=== PATIENT | female | born 1940 | race Caucasian/White ===

== ENCOUNTER 2018-09-17 11:09 | Day surgery (SDC) | payer MEDICARE, BC ==
[~2018-09-17] VITALS: Ht 165.1 cm; Wt 50.6 kg
[2018-09-17] MEDS ORDERED: normal saline 1000ml 1,000 ML IV PRN (11:50)
[2018-09-17 11:55] LABS: BASOPHILS % (AUTO) 0.4 % (0-1); EOSINOPHILS # (AUTO) 0.2 X10'3 (0-0.9); EOSINOPHILS % (AUTO) 3.2 % (0-6); HEMATOCRIT 42.3 % (35.0-45.0); HEMOGLOBIN 14.7 g/dl (12.0-16.0); LYMPHOCYTES # (AUTO) 1.9 X10'3 (1.1-4.8); LYMPHOCYTES % (AUTO) 29.7 % (21-51); MEAN CORPUSCULAR HEMOGLOBIN 37.7 PG (27.0-31.0); MEAN CORPUSCULAR HGB CONC 34.6 g/dL (33.0-36.5); MEAN CORPUSCULAR VOLUME 108.8 FL (78-98); MEAN PLATELET VOLUME 7.7 FL (7.4-10.4); MONOCYTES # (AUTO) 0.7 X10'3 (0-0.9); MONOCYTES % (AUTO) 11.6 % (2-12); NEUTROPHILS # (AUTO) 3.5 X10'3 (1.8-7.7); NEUTROPHILS % (AUTO) 55.1 % (42-75); PLATELET COUNT 182 X10'3 (140-440); RED BLOOD COUNT 3.89 X10'6 (4.20-5.60); RED CELL DISTRIBUTION WIDTH 13.2 % (11.5-14.5); WHITE BLOOD COUNT 6.3 X10'3 (4.5-11.0)
[2018-09-17 12:00] LABS: ALBUMIN 3.3 G/DL (3.4-5.0); ANION GAP 7 (8-16); BLOOD UREA NITROGEN 8 MG/DL (7-18); BUN/CREATININE RATIO 13.3 (6.6-38.0); CALCIUM 9.5 MG/DL (8.5-10.1); CHLORIDE 97 MMOL/L (99-107); GLUCOSE 87 MG/DL (70-104); POTASSIUM 3.6 MMOL/L (3.5-5.1); SODIUM 133 MMOL/L (135-145); TOTAL CARBON DIOXIDE 29.3 MMOL/L (24-32); eGFR > 90 ML/MIN
[2018-09-17] MEDS ORDERED: midazolam 2 mg/2 ml injection IV PRN (12:10)
[2018-09-17] MEDS ORDERED: fentaNYL/PF 50MCG/1 ML 2ML syringe IV PRN (12:10)
[2018-09-17] MEDS ORDERED: normal saline 1000ml 1,000 ML IV SCH (12:10)
[2018-09-17] MEDS ORDERED: heparin sodium, porcine/PF 100unit/ml 5ML syringe ICATH ONE (12:10)
[2018-09-17] MEDS ORDERED: LIDOcaine 1%/PF 5ML 10 MG/ML VIAL SQ ONE (12:10)
[2018-09-17] MEDS ORDERED: heparin sodium, porcine/PF 100unit/ml 5ML syringe ONE (12:14)
[2018-09-17] MEDS ORDERED: midazolam 2 mg/2 ml injection ONE (12:14)
[2018-09-17] MEDS ORDERED: LIDOcaine 1%/PF 5ML 10 MG/ML VIAL ONE (12:14)
[2018-09-17] MEDS ORDERED: fentaNYL/PF 50MCG/1 ML 2ML syringe ONE (12:15)
[2018-09-17 13:27] VITALS: BP 143/76
[2018-09-17 13:30] VITALS: BP 152/74
[2018-09-17 13:45] VITALS: BP 160/61
[2018-09-17 14:00] VITALS: BP 144/75
[2018-09-17 14:15] VITALS: BP 154/75
== END 2018-09-17 14:30 | disposition home or self-care (01) ==
LOC: SSTAY O 11:09
PROVIDERS: ATTEND Radiology Diagnostic Radiology
DX: C50.911 Malignant neoplasm of unspecified site of right female breast (principal); M19.91 Primary osteoarthritis, unspecified site; Z90.11 Acquired absence of right breast and nipple; Z88.8 Allergy status to other drugs, medicaments and biological substances
CPT/HCPCS: 36415; 36561; 76937; 77001; 80048; 85025; 85610; 99152; 99153; C1788; C1894; J1642; J2250; J3010; J7030; A6213